=== PATIENT | female | born 1975 | race Caucasian/White ===

== ENCOUNTER 2016-10-16 19:03 | Emergency (ER) | payer BC ==
[~2016-10-16] VITALS: Wt 96.0 kg
[2016-10-16] MEDS ORDERED: ONDANSETRON 4 MG INJ IV STA ×2 (19:38→21:15)
[2016-10-16] MEDS ORDERED: SOD CHLORIDE 0.9% 1,000 ML IV STA (19:38)
[2016-10-16 20:03] LABS: ADD SCAN DIFF NO
[2016-10-16 20:04] LABS: BASOPHILS % 0.2 % (0.0-2.0); EOSINOPHILS # 0.2 10^3/ul (0.0-0.5); EOSINOPHILS % 1.9 % (0.0-7.0); HEMATOCRIT 47.7 % (37.0-47.0); LYMPHOCYTES # 2.6 10^3/ul (0.8-2.9); LYMPHOCYTES % 30.5 % (15.0-51.0); MEAN CORPUSCULAR HEMOGLOBIN 32.4 pg (29.0-33.0); MEAN CORPUSCULAR HGB CONC 33.5 g/dl (32.0-37.0); MEAN CORPUSCULAR VOLUME 96.6 fl (82.0-101.0); MEAN PLATELET VOLUME 9.6 fl (7.4-10.4); MONOCYTE # 1.2 10^3/ul (0.3-0.9); MONOCYTES % 13.8 % (0.0-11.0); NEUTROPHIL # 4.5 10^3/ul (1.6-7.5); NEUTROPHILS % 53.2 % (39.0-77.0); PLATELET COUNT 270 10^3/UL (140-415); RED BLOOD COUNT 4.94 10^6/ul (4.20-5.40); RED CELL DISTRIBUTION WIDTH 12.2 % (11.5-14.5); WHITE BLOOD COUNT 8.4 10^3/ul (4.8-10.8)
[2016-10-16 20:13] LABS: ADD UMIC NO; UR BILIRUBIN (Dip) NEGATIVE (NEGATIVE); UR BLOOD (Dip) NEGATIVE (NEGATIVE); UR CLARITY CLEAR (CLEAR); UR COLOR YELLOW (YELLOW); UR GLUCOSE (Dip) NEGATIVE (NEGATIVE); UR KETONES (Dip) NEGATIVE (NEGATIVE); UR LEUKOCYTE ESTERASE (Dip) NEGATIVE (NEGATIVE); UR NITRITE (Dip) NEGATIVE (NEGATIVE); UR TOTAL PROTEIN (Dip) NEGATIVE (NEGATIVE); UR UROBILINOGEN (Dip) 0.2 E.U./dL (0.1-1.0)
[2016-10-16 20:21] LABS: ALBUMIN 4.7 g/dl (3.3-4.9); ALBUMIN/GLOBULIN RATIO 1.88; BILIRUBIN,INDIRECT 0.1 mg/dl (0-1.1); BILIRUBIN,TOTAL 0.1 mg/dl (0.2-1.3); CALCIUM 8.9 mg/dl (8.4-10.2); CREATININE 0.93 mg/dl (0.44-1.00); TOTAL PROTEIN 7.2 g/dl (6.1-8.1)
[2016-10-16] MEDS ORDERED: ONDA4TAB14 PO (21:17)
--- NOTE | 2016-10-16 23:14 | ERD ---
ER Documentation Chief Complaint Date/Time DATE: 10/16/16 TIME: 23:12 Chief Complaint Nausea with vomiting x3 days, no AP HPI 41-year-old female otherwise healthy comes emergency room with nausea, vomiting for the past 3 days. Patient states that initially the first 1-2 days she had tactile fevers. She reports up to 5 episodes of nonbloody nonbilious emesis, without abdominal pain. No diarrhea, no chest pain or shortness of breath. Denies recent travel. ROS All systems reviewed and are negative except as per history of present illness. Medications Home Meds Active Scripts Ondansetron (Ondansetron Odt) 4 Mg Tab.rapdis, 4 MG PO Q6H Y for NAUSEA AND/OR VOMITING, #12 TAB Prov:RUBEN HUERTA PA-C 10/16/16 Allergies Allergies: Coded Allergies: No Known Allergy (Unverified , 10/16/16) PMhx/Soc History of Surgery: Yes (APPENDECTOMY) Anesthesia Reaction: No Hx Neurological Disorder: No Hx Respiratory Disorders: No Hx Cardiac Disorders: No Hx Psychiatric Problems: No Hx Miscellaneous Medical Probl: No Hx Alcohol Use: No Hx Substance Use: No Hx Tobacco Use: Yes Smoking Status: Current every day smoker Physical Exam Vitals Vital Signs Date Time Temp Pulse Resp B/P Pulse Ox O2 Delivery O2 Flow Rate FiO2 10/16/16 19:14 98.6 91 20 107/72 100 Physical Exam General: Well-developed, well-nourished. The patient appears in no acute distress. HEENT: Head is normocephalic, atraumatic. No scleral icterus. Pupils are equal , round, and reactive. Oral mucous membranes are moist. No pharyngeal erythema. Neck: Supple. Nontender. Lungs: Clear to auscultation. Normal air movement. Heart: Regular rate and rhythm. S1 and S2 are normal. No murmurs, gallops, or rubs. Abdomen: Soft, nontender, nondistended. Bowel sounds are normoactive. Extremities: No clubbing or cyanosis. Normal pulses. Moving extremities x 4. No weakness. Neurologic: Alert and oriented 3. No focal deficits. Skin: Normal turgor. No rash or lesions. Result Diagram: 10/16/16195710/16/161957 Results 24 hrs Laboratory Tests Test 10/16/16 19:45 10/16/16 19:58 Urine Color YELLOW Urine Clarity CLEAR Urine pH 6.0 Urine Specific Gracey >=1.030 Urine Ketones NEGATIVE Urine Nitrite NEGATIVE Urine Bilirubin NEGATIVE Urine Urobilinogen 0.2 E.U./dL Urine Leukocyte Esterase NEGATIVE Urine Hemoglobin NEGATIVE Urine Glucose NEGATIVE% Urine Total Protein NEGATIVE White Blood Count 8.410^3/ul Red Blood Count 4.9410^6/ul Hemoglobin 16.0g/dl Hematocrit 47.7% Mean Corpuscular Volume 96.6fl Mean Corpuscular Hemoglobin 32.4pg Mean Corpuscular Hemoglobin Concent 33.5g/dl Red Cell Distribution Width 12.2% Platelet Count 81276^3/UL Mean Platelet Volume 9.6fl Neutrophils % 53.2% Lymphocytes % 30.5% Monocytes % 13.8% Eosinophils % 1.9% Basophils % 0.2% Nucleated Red Blood Cells % 0.0/100WBC Neutrophils # 4.510^3/ul Lymphocytes # 2.610^3/ul Monocytes # 1.210^3/ul Eosinophils # 0.210^3/ul Basophils # 0.010^3/ul Nucleated Red Blood Cells # 0.010^3/ul Sodium Level 139mmol/L Potassium Level 4.0mmol/L Chloride Level 104mmol/L Carbon Dioxide Level 29mmol/L Anion Gap 10 Blood Urea Nitrogen 12mg/dl Creatinine 0.93mg/dl Glucose Level 91mg/dl Calcium Level 8.9mg/dl Total Bilirubin 0.1mg/dl Direct Bilirubin 0.00mg/dl Indirect Bilirubin 0.1mg/dl Aspartate Amino Transf (AST/SGOT) 26IU/L Alanine Aminotransferase (ALT/SGPT) 33IU/L Alkaline Phosphatase 65IU/L Total Protein 7.2g/dl Albumin 4.7g/dl Globulin 2.50g/dl Albumin/Globulin Ratio 1.88 Lipase 84U/L Current Medications Medications (Trade) Dose Ordered Sig/Alexis Route PRN Reason Start Time Stop Time Status Last Admin Dose Admin Sodium Chloride (NS) 1,000 ml @ 1,000 mls/hr Q1H STAT IV 10/16/16 19:38 10/16/16 20:37 DC 10/16/16 19:53 Ondansetron HCl (Zofran Inj) 4 mg ONCE STAT IV 6/15/17 19:38 10/16/16 19:39 DC 10/16/16 19:53 Ondansetron HCl (Zofran Inj) 4 mg ONCE STAT IV 10/16/16 21:15 10/16/16 21:16 DC 10/16/16 21:30 Procedures/MDM ED course: IV line established, blood and urine were obtained. She was given a fluid bolus normal saline 1 L, she was given Zofran 4 mg IV, as well as a repeat Zofran 4 mg IV. Reassessment patient show that she is resting comfortably, did not experience any further emesis. She states that she is feeling much better and ready to be discharged home. MDM: 41-year-old female comes with nausea vomiting over the last 3 days, differential diagnosis includes viral gastroenteritis, gastritis, GERD, acute hepatobiliary process, pancreatitis, UTI, pyelonephritis, bowel obstruction, ovarian torsion, and among others. Labs were unremarkable, there is no leukocytosis, no electrolyte abnormalities, no hypokalemia. AST ALT as well as lipase were all normal. I believe that this is likely a viral process, she has a history of recent fever that resolved followed by nausea vomiting. She was given fluids emergency department as well as Zofran and feels much better at this time. I have advised her to a liquid diet, she will be given Zofran for home. Departure Diagnosis: Primary Impression: Nausea and vomiting Condition: Good Patient Instructions: Nausea and Vomiting-Adult Additional Instructions: Call your primary care doctor TOMORROW for an appointment during the next 1-2 days.See the doctor sooner or return here if your condition worsens before your appointment time. RUBEN HUERTA PA-C Oct 16, 2016 23:14
== END 2016-10-16 21:50 | disposition home or self-care (01) ==
LOC: FTE 19:03
DX: R11.2 Nausea with vomiting, unspecified (principal); F17.210 Nicotine dependence, cigarettes, uncomplicated
CPT/HCPCS: 80053; 81003; 83690; 85025; J2405; J7030; 36415; 96374; 96376